=== PATIENT | male | born 1945 | race Caucasian/White ===

== ENCOUNTER 2020-05-04 16:50 | Outpatient (CLI) | payer MEDICARE, SELFPAY ==
--- NOTE | 2020-05-04 | USCV_ITS ---
Brett Gallego Age: 74 Gender: M : 1945 Exam Date: 05/04/2020 17:10 Ordering Phys: Shelli Stevens APN- NIRANJAN MEDICAL DELIVERY DRIVER Technologist: Tasha Whitaker Exam Location: [facility] [place] Indication: PAIN AND SWELLING RT LEG HISTORY: Pain and swelling Rt leg PROCEDURES: Venous duplex imaging was performed in only the right lower extremity. The following venous structures were evaluated: common femoral vein, profunda vein, proximal portion of the greater saphenous vein, superficial femoral vein, and the popliteal vein. In addition, the posterior tibial and peroneal trunk were evaluated. Serial compression, augmentation maneuvers, and spectral Doppler flow evaluation were performed. FINDINGS: DVT is noted from the Rt FV thru Rt Pop thru Rt. Peroneal Thru Rt. ATV thru Rt PTV. The GSV appears neg. CONCLUSIONS DVT right Femoral vein thru popliteal. Thrombus right peroneal trunk extending into anterior and posterior tibial veins. Volunteer Manager d/w: SUSIE STEVENS AND THEN TOOK TO ER PER HER INSTRUCTIONS Bubba Stapleton MD (Electronically Signed) Final Date: 04 May 2020 17:34 S
== END 2020-05-04 16:51 | disposition home or self-care (01) ==
PROVIDERS: Visit Provider Nurse Practitioner Family
DX: M79.605 Pain in left leg (principal); R60.0 Localized edema; M79.89 Other specified soft tissue disorders
CPT/HCPCS: 93971

== ENCOUNTER 2020-05-04 17:24 | Emergency (ER) | payer MEDICARE, SELFPAY ==
[2020-05-04 17:33] VITALS: BP 151/81; PULSE 63; RESP 18; TEMP 36.8; O2SAT 97; BMI 23.5
[2020-05-04 17:40] VITALS: PULSE 74
--- NOTE | 2020-05-04 18:41 | ED_ITS ---
HPI - Extremity Problem General: Chief complaint: Extremity Problem,Nontraumatic Stated complaint: blood clot Time Seen by Provider: 05/04/20 18:27 Source: patient Mode of arrival: ambulatory Limitations: no limitations History of Present Illness: HPI Narrative: 74 yo male that states he has right leg pain over the last week. pt states his pain is a 3/10. he had a us today and it showed a dvt so she sent her here. denies chest pain and denies sob MD Complaint: extremity pain Onset (ago): day(s) Pain Consistency: constant Location: right Severity scale (1-10): 6 Quality: stabbing Associated symptoms: Deny chest pain, fever(s) or rash Review of Systems Const: Denies: fever(s), chills, body aches or change in appetite Eyes: Denies: blurry vision or eye discomfort ENMT: Denies: throat pain or dental pain Card: Denies: chest pain Resp: Denies: dyspnea GI: Denies: abdominal pain, nausea, vomiting or diarrhea : Denies: dysuria Musc: Denies: neck pain or back pain Skin/Breast: Denies: rash Neuro: Denies: headache(s) Psych: Denies: depression Narciso/Lymph: Denies: easy bruising All/Imm: Denies: urticaria Physical Exam Const: COMMON NORMALS: no acute distress, patient oriented x3 and healthy appearing HENMT: COMMON NORMALS: normocephalic and atraumatic HEAD & SCALP: normocephalic and atraumatic Eye: COMMON NORMALS: Equal, round and reactive pupils present and EOMs intact bilaterally PUPIL: Yes Equal, round and reactive pupils present Neck/C-Spine: COMMON NORMALS: full ROM and supple Chest: COMMONS NORMALS: normal inspection of the chest and normal palpation of entire chest wall Resp: COMMON NORMALS: normal respiratory effort, No retractions, No use of accessory muscles and clear to auscultation bilaterally AUSCULTATION: clear to auscultation bilaterally Cardio: COMMON NORMALS: regular rate, regular rhythm and No murmurs present (Cardio) RATE: regular rate RHYTHM: regular rhythm GI: COMMON NORMALS: Normal to inspection, nondistended, normoactive bowel sounds present, Soft to palpation, non-tender and no masses PALPATION: Yes Soft to palpation Extremity: COMMON NORMALS: full ROM NARRATIVE EXTREMITY EXAM: Tenderness over right calf distal pulses intact Neuro: COMMON NORMALS: patient oriented x3, moves all extremities and no focal motor deficits Psych: COMMON NORMALS: mental status grossly normal, Normal thought process present and cooperative THOUGHT PROCESS: Normal thought process present Skin: COMMON NORMALS: no rashes or lesions noted and no wounds GENERAL SKIN EXAM: no rashes or lesions noted Course Vital Signs: Vital signs: Vital Signs Temperature 98.3 F 05/04/20 17:33 Pulse Rate 63 05/04/20 17:33 Respiratory Rate 18 05/04/20 17:33 Blood Pressure 151/81 05/04/20 17:33 Pulse Oximetry 97 05/04/20 17:33 MDM - Extremity (Nontraumatic) MDM Narrative: Medical decision making narrative: Patient presents for DVT to right leg. Patient's exam here is benign and he has no sign of arterial dysfunction. Patient has no chest pain or shortness of breath no signs of pulmonary was not. Will start patient on Eliquis. Patient is stable for discharge Discharge Plan Discharge Patient Disposition: Home Clinical Impression: Deep vein thrombosis of lower extremity Qualifiers: Affected thrombotic vein of extremity: unspecified vein of extremity Chronicity: acute Laterality: right Qualified Code(s): I82.401 - Acute embolism and thrombosis of unspecified deep veins of right lower extremity Condition: Stable Prescriptions: New Eliquis 5 mg tablet 10 mg PO BID 7 Days Qty: 28 RF: 0 Eliquis 5 mg tablet 5 mg PO BID Qty: 30 RF: 0 Discharge Orders: Discharge Order (Routine); Ordered 05/04/20 Ordered By: Reyes Harrison Referrals: Rica Stevens FNP [Referring] - 1-3 days Discharge Diet: Advance as tolerated Discharge Activity: Resume usual activity Patient Instructions: Deep Venous Thrombosis (ED) Coding Level of Care Code ED Research And Development Researcher for [facility] [place]
[2020-05-04] MEDS: enoxaparin 80 mg/0.8 mL Syringe 70 MG SUBCUT (18:52)
[2020-05-04 18:59] VITALS: BP 132/74; PULSE 74; RESP 18; O2SAT 98
== END 2020-05-04 19:01 | disposition home or self-care (01) ==
PROVIDERS: Emergency Provider Emergency Medicine
DX: I82.401 Acute embolism and thrombosis of unspecified deep veins of right lower extremity (principal)
CPT/HCPCS: 12345; 96372; 99281; 99283; J1650

== ENCOUNTER 2020-07-27 13:20 | Outpatient (CLI) | payer MEDICARE, SELFPAY ==
--- NOTE | 2020-07-27 13:39 | USCV_ITS ---
Sullivan, Thomas Age: 75 Gender: M : 1945 Exam Date: 07/27/2020 14:45 Ordering Phys: Shelli Stevens APN- NIRANJAN INDUSTRIAL MAINTENANCE TECH Technologist: Reilly Garcia [place] [facility] [place]: RIGHT LEG PAIN/ EDEMA PROCEDURES: Venous duplex imaging was performed in only the right lower extremity. The following venous structures were evaluated: common femoral vein, profunda vein, proximal portion of the greater saphenous vein, superficial femoral vein, and the popliteal vein. In addition, the posterior tibial and peroneal trunk were evaluated. Serial compression, augmentation maneuvers, and spectral Doppler flow evaluation were performed. FINDINGS: DVT noted in the right distal femoral, popliteal, and peroneal veins. All other vessels examined appear free of thrmobus at this time. CONCLUSIONS DVT RIGHT distal femoral, popliteal, and peroneal veins. Remaining vessels RLE are patent Bubba Stapleton MD (Electronically Signed) Final Date: 27 July 2020 17:05 S
== END 2020-07-27 13:21 | disposition home or self-care (01) ==
LOC: US 13:24
PROVIDERS: PCP Nurse Practitioner Family; Visit Provider Nurse Practitioner Family
DX: M79.604 Pain in right leg (principal); R60.0 Localized edema; I82.451 Acute embolism and thrombosis of right peroneal vein; I82.431 Acute embolism and thrombosis of right popliteal vein; I82.411 Acute embolism and thrombosis of right femoral vein
CPT/HCPCS: 93971

== ENCOUNTER → 2021-02-02 09:26 | Outpatient (BNVA) | payer MEDICARE, SELFPAY | PROVIDERS: PCP Nurse Practitioner Family; Visit Provider Specialist | DX: R25.1 Tremor, unspecified (principal); G30.9 Alzheimer's disease, unspecified; F02.80 Dementia in other diseases classified elsewhere, unspecified severity, without behavioral disturbance, psychotic disturbance, mood disturbance, and anxiety | CPT/HCPCS: 96116; 99205 ==

== ENCOUNTER → 2021-06-22 08:54 | Outpatient (BNVA) | payer MEDICARE, SELFPAY | PROVIDERS: PCP Nurse Practitioner Family; Visit Provider Specialist | DX: G30.9 Alzheimer's disease, unspecified (principal); F02.80 Dementia in other diseases classified elsewhere, unspecified severity, without behavioral disturbance, psychotic disturbance, mood disturbance, and anxiety; R25.1 Tremor, unspecified | CPT/HCPCS: 96116; 99214 ==

== ENCOUNTER → 2021-12-21 09:20 | Outpatient (BNVA) | payer MEDICARE, SELFPAY | PROVIDERS: PCP Nurse Practitioner Family; Visit Provider Specialist | DX: G30.9 Alzheimer's disease, unspecified (principal); F02.80 Dementia in other diseases classified elsewhere, unspecified severity, without behavioral disturbance, psychotic disturbance, mood disturbance, and anxiety; R25.1 Tremor, unspecified | CPT/HCPCS: 99213; 99214 ==

== ENCOUNTER → 2022-12-29 14:14 | Outpatient (BNVA) | payer MEDICARE, SELFPAY | PROVIDERS: PCP Nurse Practitioner Family; Visit Provider Specialist | DX: G30.9 Alzheimer's disease, unspecified (principal); F02.80 Dementia in other diseases classified elsewhere, unspecified severity, without behavioral disturbance, psychotic disturbance, mood disturbance, and anxiety | CPT/HCPCS: 96116; 99213 ==

== ENCOUNTER 2023-11-01 18:27 | Emergency (ER) | payer MEDICARE, SELFPAY ==
[2023-11-01] VITALS (8 sets, daily range): BP systolic 106–148; BP diastolic 62–85; PULSE 66–77; RESP 14–18; TEMP 38.2–39.1; O2SAT 93–95
--- NOTE | 2023-11-01 18:39 | CTR_ITS ---
PROCEDURE INFORMATION: Exam: CTA Head With Contrast, Arteriography Exam date and time: 11/01/2023 6:42 PM Age: 78 years old Clinical indication: Stroke-like symptoms; Speech disturbance; Additional info: Garbled speech left sided weakness TECHNIQUE: Imaging protocol: Computed tomographic angiography of the head with contrast. Exam focused on the arteries. 3D rendering (Not supervised by radiologist): MIP and/or 3D reconstructed images were created by the technologist. Radiation optimization: All CT scans at this facility use at least one of these dose optimization techniques: automated exposure control; mA and/or kV adjustment per patient size (includes targeted exams where dose is matched to clinical indication); or iterative reconstruction. Contrast material: OMNI 350; Contrast volume: 100 ml; Contrast route: INTRAVENOUS (IV); COMPARISON: CT head thrombolytic [id number] 11/01/2023 6:34 PM RADIATION DOSE METRICS: Total DLP (mGy-cm): 468 FINDINGS: ANTERIOR CIRCULATION: Right internal carotid artery: Intracranial segment is patent with no significant stenosis. No aneurysm. Right middle cerebral artery: No occlusion or significant stenosis. No aneurysm. Right anterior cerebral artery: No occlusion or significant stenosis. No aneurysm. Left internal carotid artery: Atherosclerosis left internal carotid with mild stenosis. Left middle cerebral artery: No occlusion or significant stenosis. No aneurysm. Left anterior cerebral artery: No occlusion or significant stenosis. No aneurysm. POSTERIOR CIRCULATION: Right vertebral artery: No occlusion or significant stenosis. No aneurysm. Left vertebral artery: Distal left V4 segment of the vertebral artery is opacified which is likely retrograde. 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 Basilar artery: No occlusion or significant stenosis. No aneurysm. Right posterior cerebral artery: No occlusion or significant stenosis. No aneurysm. Left posterior cerebral artery: No occlusion or significant stenosis. No aneurysm. Brain: See Left vertebral artery finding. Cerebral ventricles: No ventriculomegaly. Bones/joints: Unremarkable. No acute fracture. Soft tissues: Unremarkable. Other findings: The left PICA is patent. PROCEDURE INFORMATION: Exam: CTA Neck With Contrast Exam date and time: 11/01/2023 6:42 PM Age: 78 years old Clinical indication: Stroke-like symptoms; Speech disturbance; Additional info: Garbled speech left sided weakness TECHNIQUE: Imaging protocol: Computed tomographic angiography of the neck with contrast. Exam focused on the cervical segments of the vasculature. 3D rendering (Not supervised by radiologist): MIP and/or 3D reconstructed images were created by the technologist. Radiation optimization: All CT scans at this facility use at least one of these dose optimization techniques: automated exposure control; mA and/or kV adjustment per patient size (includes targeted exams where dose is matched to clinical indication); or iterative reconstruction. Contrast material: OMNI 350; Contrast volume: 100 ml; Contrast route: INTRAVENOUS (IV); COMPARISON: CT head thrombolytic [id number] 11/01/2023 6:34 PM RADIATION DOSE METRICS: Total DLP (mGy-cm): 468 FINDINGS: Right common carotid artery: No stenosis. No dissection or occlusion. Right internal carotid artery: No stenosis of the extracranial segment. No dissection or occlusion. Right external carotid artery: No occlusion or stenosis of the origin. Left common carotid artery: No stenosis. No dissection or occlusion. Left internal carotid artery: Atherosclerotic changes proximal left internal carotid artery with less than 30% stenosis. Left external carotid artery: No occlusion or stenosis of the origin. Right vertebral artery: No stenosis. No dissection or occlusion. Left vertebral artery: The non dominant left vertebral artery is occluded at its origin. There is some faint opacification of the V2 and V3 segment which may be retrograde. Soft tissues: Normal. No significant soft tissue swelling. Bones/joints: No acute fracture. Partially seen mild chronic appearing T6 superior endplate height loss. Other findings: The distal cervical internal carotid arteries are tortuous bilaterally. 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 The intracranial vasculature is otherwise patent. IMPRESSION: The left vertebral artery is occluded at its origin. There is some intermittent opacification in the V2 and V3 segment which may be retrograde. These findings may be related to an age indeterminate potentially acute dissection. REFERENCES: NASCET CRITERIA. The degree of stenosis in the cervical segment of the internal carotid artery is based on NASCET criteria. Normal is no stenosis. Mild is less than 50% stenosis. Moderate is 50-69% stenosis. Severe is 70% to 99% stenosis. Total occlusion is no detectable patent lumen.
--- NOTE | 2023-11-01 18:39 | CTR_ITS ---
PROCEDURE INFORMATION: Exam: CT Head Without Contrast Exam date and time: 11/01/2023 6:34 PM Age: 78 years old Clinical indication: Stroke-like symptoms; Speech disturbance; Additional info: Garbled speech left sided weakness TECHNIQUE: Imaging protocol: Computed tomography of the head without contrast. Radiation optimization: All CT scans at this facility use at least one of these dose optimization techniques: automated exposure control; mA and/or kV adjustment per patient size (includes targeted exams where dose is matched to clinical indication); or iterative reconstruction. Other technique: STROKE PROTOCOL was implemented. COMPARISON: No relevant prior studies available. 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 No acute infarct. No hemorrhage. Involutional changes of the brain, commensurate with age. No mass effect. Cerebral ventricles: No ventriculomegaly. Paranasal sinuses: Scattered paranasal sinus mucosal thickening, without air-fluid level present. Mastoid air cells: Visualized mastoid air cells are well aerated. Bones/joints: Unremarkable. No acute fracture. Soft tissues: Unremarkable. CT/CT head thrombolytic [id number] IMPRESSION: No acute intracranial abnormality. ASSESSMENT: ASPECTS ([place] Stroke Program Early CT Score) is 10.
--- NOTE | 2023-11-01 18:40 | XRR_ITS ---
PROCEDURE INFORMATION: Exam: XR Chest Exam date and time: 11/01/2023 7:31 PM Age: 78 years old Clinical indication: Other: Possible stroke; Additional info: Garbled speech TECHNIQUE: Imaging protocol: Radiologic exam of the chest. Views: 1 view. COMPARISON: CT angio headneck* [id number] 11/01/2023 6:42 PM FINDINGS: Lungs: Unremarkable. No consolidation. Pleural spaces: Unremarkable. No pleural effusion. No pneumothorax. Heart/Mediastinum: The heart size is mildly enlarged with tortuous aorta. Bones/joints: Unremarkable. XR/XR chest 1V portable [id number] IMPRESSION: No acute findings.
--- NOTE | 2023-11-01 18:44 | ED_ITS ---
HPI - Neuro Symptoms/Deficit 2 General: Chief Complaint: Neuro Symptoms/Deficit Stated Complaint: possible stroke Time Seen by Provider: 11/01/23 18:39 History of Present Illness: Patient brought to the ER for possible strokelike symptoms. Patient woke up from his nap about 130 2:00 and family noticed that he was slurring his speech and having left-sided weakness. Patient had a similar episode yesterday that had completely resolved by his episode today. Patient is on Eliquis for history of DVT. Patient does have dementia. Patient does not have any history of strokes in the past. Patient does have Alzheimer's. And tremor. Review of Systems 2 General: Reports: 10 or more systems reviewed and unremarkable except in HPI and below PFSH ED 2 PFSH: Social History Smoking and tobacco/nicotine status: never used tobacco/nicotine Alcohol intake: never Substance/Drug Use: never Physical Exam 2 Const: COMMON NORMALS: no acute distress, average body habitus, no limitations, healthy appearing, alert and well nourished HENMT: COMMON NORMALS: normocephalic, atraumatic, hearing grossly normal bilaterally, external ears normal, Normal external nose present, moist oral mucous membranes and oropharynx normal HEAD & SCALP: normocephalic and atraumatic NOSE: Normal external nose present EXTERNAL EAR: Yes external ears normal Eye: COMMON NORMALS: Equal, round and reactive pupils present, EOMs intact bilaterally, conjunctivae normal and no scleral icterus CONJUNCTIVA: Yes conjunctivae normal PUPIL: Yes Equal, round and reactive pupils present Neck/C-Spine: COMMON NORMALS: full ROM, no lymphadenopathy, supple, no meningeal signs, no JVD and Thyroid normal THYROID: Thyroid normal Chest: COMMONS NORMALS: normal inspection of the chest and normal palpation of entire chest wall Resp: COMMON NORMALS: normal respiratory effort, No retractions, No use of accessory muscles and clear to auscultation bilaterally AUSCULTATION: clear to auscultation bilaterally Cardio: COMMON NORMALS: no JVD, regular rate, regular rhythm, S1 normal heart sound present, S2 normal heart sound present, No gallops present (Cardio), No clicks present (Cardio), No murmurs present (Cardio) and No rub (Cardio) R ATE: regular rate RHYTHM: regular rhythm HEART SOUNDS: S1 normal heart sound present and S2 normal heart sound present GI: COMMON NORMALS: Normal to inspection, nondistended, normoactive bowel sounds present, Soft to palpation, non-tender, No hepatosplenomegaly present and no masses PALPATION: Yes Soft to palpation and Yes No hepatosplenomegaly present Neuro: SENSORIUM/ORIENTATION: Yes alert MENINGEAL SIGNS: Yes no meningeal signs OTHER: NIH 1 for speech Course 2 Vital Signs: Vital signs: Vital Signs Temperature 100.8 F H 11/01/23 20:32 Pulse Rate 71 11/01/23 21:41 Respiratory Rate 14 11/01/23 19:01 Blood Pressure 125/70 11/01/23 21:41 Pulse Oximetry 95 11/01/23 21:41 Oxygen Delivery Me thod Room Air 11/01/23 21:15 MDM - Neuro Symptoms/Deficit Medical Decision Making Dr. Rodriguez came to the ER to evaluate patient. He scored him an NIH of 1. He said family stated patient's 90% back to normal during his exam. And already being on Eliquis he would consider adding a 81 mg aspirin, Lipitor 40 mg and have him follow-up on an outpatient 1 to 2 weeks. Reassessing the patient with the family patient and family agree the patient is back to normal. Patient is COVID-positive. Differential Diagnosis Likely transient cerebral ischemia; Unlikely carpal tunnel syndrome, convulsions, delirium, subarachnoid hemorrhage, peripheral neuropathy, cerebrovascular accident or multiple sclerosis Medical Records I reviewed the patient's medical records. Lab Data I reviewed the patient's lab results. 11/01/23 18:59 11/01/23 18:[address] 11/01/23 18:39 IMPRESSION: No acute intracranial abnormality. ASSESSMENT: ASPECTS ([place] Stroke Program Early CT Score) is 10. 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 The intracranial vasculature is otherwise patent. IMPRESSION: The left vertebral artery is occluded at its origin. There is some intermittent opacification in the V2 and V3 segment which may be retrograde. These findings may be related to an age indeterminate potentially acute dissection. REFERENCES: NASCET CRITERIA. The degree of stenosis in the cervical segment of the internal carotid artery is based on NASCET criteria. Normal is no stenosis. Mild is less than 50% stenosis. Moderate is 50-69% stenosis. Severe is 70% to 99% stenosis. Total occlusion is no detectable patent lumen. ADDENDUM: 11/01/231925 THIS REPORT CONTAINS FINDINGS THAT MAY BE CRITICAL TO PATIENT CARE. The findings were verbally communicated via telephone conference with Milton Gill at 7:20 PM SUPERVISOR [employer] on 11/01/2023. The findings were acknowledged and understood. The M1 segment of the left MCA is also noted to have mild stenosis distally. No occlusion. Chest X-Ray 11/01/23 18:40 IMPRESSION: No acute findings. Laboratory Results WBC 5.40 10^3/uL (3.29-11.43) 11/01/23 18:59 RBC 4.16 10^6/uL (3.85-5.65) 11/01/23 18:59 Hgb 13.00 g/dL (11.27-16.99) 11/01/23 18:59 Hct 38.0 % (37-53) 11/01/23 18:59 MCV 91.3 fl (82-101) 11/01/23 18:59 MCH 31.3 pg (27-33) 11/01/23 18:59 MCHC 34.2 g/dL (30-55) 11/01/23 18:59 RDW 11.5 % (12.1-15.1) L 11/01/23 18:59 Plt Count 133 10^3/cmm (157-399) L 11/01/23 18:59 MPV 9.4 fL (7.4-10.4) 11/01/23 18:59 Neut % (Auto) 74.0 % 11/01/23 18:59 Lymph % (Auto) 10.0 % 11/01/23 18:59 [place] % (Auto) 15.6 % 11/01/23 18:59 Eos % (Auto) 0.0 % 11/01/23 18:59 Baso % (Auto) 0.2 % 11/01/23 18:59 Neut # (Auto) 4.00 10^3/uL (1.8-7.7) 11/01/23 18:59 Lymph # (Auto) 0.5 10^3/uL (0.8-4.8) L 11/01/23 18:59 [place] # (Auto) 0.8 10^3/uL (0.2-0.9) 11/01/23 18:59 Eos # (Auto) 0.0 10^3/uL (0.0-0.8) 11/01/23 18:59 Baso # (Auto) 0.0 10^3/uL (0.0-0.1) 11/01/23 18:59 Nucleated RBC % (auto) 0 % 11/01/23 18:59 Nucleated RBCs # 0.0 /100WBC 11/01/23 18:59 Sodium 131 mmol/L (136-145) L 11/01/23 18:59 Potassium 4.5 mmol/L (3.5-5.1) 11/01/23 18:59 Chloride 97 mmol/L (98-107) L 11/01/23 18:59 Carbon Dioxide 27 mmol/L (22-29) 11/01/23 18:59 Anion Gap 11.5 (5-19) 11/01/23 18:59 BUN 15 mg/dL (8-23) 11/01/23 18:59 Creatinine 0.9 mg/dL (0.7-1.2) 11/01/23 18:59 GFR Calculation Not Reportable 11/01/23 18:59 Glucose 103 mg/dL (65-115) 11/01/23 18:59 POC Glucose 95 mg/dL (70-110) 11/01/23 18:45 Calculated Osmolality 273 mOsm/kg (285-295) L 11/01/23 18:59 Lactic Acid 1.1 mmol/L (0.5-2.2) 11/01/23 18:59 Calcium 8.1 mg/dL (8.5-10.5) L 11/01/23 18:59 Magnesium 2.0 mg/dL (1.7-2.3) 11/01/23 18:59 Total Bilirubin 0.4 mg/dL (0.15-1.2) 11/01/23 18:59 AST 19 U/L (0-40) 11/01/23 18:59 ALT 15 U/L (0-41) 11/01/23 18:59 Alkaline Phosphatase 68 U/L (40-130) 11/01/23 18:59 Troponin T Baseline 9 ng/L (0-15) 11/01/23 18:59 Troponin T 120 Minute 11.86 ng/L (0-15) 11/01/23 20:40 Delta Troponin T 2.86 ABS# (0-10) 11/01/23 20:40 C-Reactive Protein 37.4 mg/L (0.0-4.9) H 11/01/23 18:59 Total Protein 5.8 g/dL (6.6-8.7) L 11/01/23 18:59 Albumin 3.6 g/dL (3.5-5.2) 11/01/23 18:59 Globulin 2.2 g/dL (1.3-4.6) 11/01/23 18:59 Procalcitonin 0.05 ng/mL (0-0.5) 11/01/23 18:59 TSH 1.93 uIU/mL (0.27-4.20) 11/01/23 18:59 Urine Color Yellow (Yellow) 11/01/23 19:18 Urine Appearance Clear (CLEAR) 11/01/23 19:18 Urine pH 5 (5-7) 11/01/23 19:18 Ur Specific [place] 1.015 (1.005-1.030) 11/01/23 19:18 Urine Protein Neg (Negative) 11/01/23 19:18 Urine Glucose (UA) Norm (Normal) 11/01/23 19:18 Urine Ketones Negative (Negative) 11/01/23 19:18 Urine Blood Neg (Negative) 11/01/23 19:18 Urine Nitrate Negative (Negative) 11/01/23 19:18 Urine Bilirubin Neg (Negative) 11/01/23 19:18 Urine Urobilinogen Norm mg/dL (Negative) 11/01/23 19:18 Ur Leukocyte Esterase Negative (Negative) 11/01/23 19:18 Influenza Type A Ag negative (Negative) 11/01/23 19:55 Influenza Type B Ag negative (Negative) 11/01/23 19:55 SARS-CoV-2 Ag (Rapid) positive (Negative) H 11/01/23 19:55 All radiology interpretation(s) finalized by discharge Discharge Plan Discharge Patient Disposition: Home Clinical Impression: Brain TIA, COVID Alzheimer's dementia Qualifiers: Alzheimer's disease onset: unspecified onset Dementia severity: unspecified severity Dementia behavioral or psychological symptom: unspecified whether behavioral, psychotic, or mood disturbance or anxiety Qualified Code(s): G30.9 - Alzheimer's disease, unspecified Condition: Stable Prescriptions: New Eliquis 5 mg tablet 5 mg PO BID Qty: 60 0RF Aspirin Childrens 81 mg tablet,chewable 81 mg PO DAILY Qty: 30 0RF Lipitor 40 mg tablet 40 mg PO DAILY Qty: 30 0RF No Action magnesium 250 mg tablet 250 mg PO DAILY ascorbic acid (vitamin C) [Vitamin C] 1,000 mg tablet 500 mg PO DAILY Eliquis 5 mg tablet 5 mg PO DAILY Rx Instructions: start this after first week of loading dose memantine [Namenda] 10 mg tablet 10 mg PO BID Qty: 180 3RF donepezil 10 mg tablet 10 mg PO DAILY Qty: 90 3RF Discharge Orders: Discharge ED (Routine); Ordered 11/01/23 Ordered By: Milton Acosta Referrals: Shelli Stevens APN [Primary Care Provider] - 1 week Patient Instructions: COVID-19 (Coronavirus Disease 2019) (ED), TIA Activity Restrictions/Additional Instructions: Please take all medicines as prescribed. If patient's symptoms return or worsen please return to the ER for further evaluation and treatment otherwise follow-up in Dr. Ryder's office or with Dr. Rodriguez if Dr. Ryder is unavailable within the next 1 to 2 weeks. Coding Level of Care Code ED Relations Manager for [place]
[2023-11-01 18:49] LABS: Glucose Point of Care 95 mg/dL (70-110)
--- NOTE | 2023-11-01 18:55 | ECG_ITS ---
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 Measurements Intervals [place] Rate: 76 P: 42 UT: 150 QRS: 54 QRSD: 92 T: 10 QT: 357 QTc: 402 Interpretive Statements SINUS RHYTHM No previous ECG available for comparison Electronically Signed On 11-02-2023 11:39:21 CANTEEN MANAGER by Carlito Zhao M.D. [email or web address]
[2023-11-01 19:07] LABS: Basophils % 0.2 %; Lymphocytes # 0.5 10^3/uL (0.8-4.8); Mean Corpuscular HGB Conc 34.2 g/dL (30-55); Mean Corpuscular Hemoglobin 31.3 pg (27-33); Mean Corpuscular Volume 91.3 fl (82-101); Mean Platelet Volume 9.4 fL (7.4-10.4); Monocytes # 0.8 10^3/uL (0.2-0.9); Monocytes % 15.6 %; Nucleated Red Blood Cells % 0 %; Platelet Count 133 10^3/cmm (157-399); Red Blood Count 4.16 10^6/uL (3.85-5.65); Red Cell Distribution Width 11.5 % (12.1-15.1)
--- NOTE | 2023-11-01 19:14 | P.CONIM_ITS ---
Providers/Reason For Consult 2 Consulting Physician/Specialty*: Cristopher Rodriguez MD neurology and epilepsy Reason for Consult*: Code stroke emergency department room #16 Primary Care Provider: Shelli Stevens APN History of Present Illness History of Present Illness Brett Sullivan is a 78 year old male with a history of right deep venous thrombosis 3 to 4 years ago treated with Eliquis and Alzheimer's disease. Patient followed by Dr. Ryder. According to the family who was present in the emergency [facility], the patient was last seen by Dr. Ryder in 2022. 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 According to the family the patient was at home and on 10/31/2023 the patient experienced slurred speech that lasted for an extended period of time and then resolved. On the morning of 11/01/2023 the patient was reported to be in his usual state of health. Patient took a nap on the afternoon of 11/01/2023 and woke up around 2 PM with slurred speech that continued and the patient was reported by the family to experience weakness in his legs with inability to stand. Therefore the patient was brought to [facility] emergency room. According to the patient's , the patient also complained of lumbar pain on 10/31/2023 and today he was experiencing nasal drip and she administered to Benadryl capsules around 2 PM today. In the emergency room, patient underwent stat noncontrast head CT which was reported to be negative. CT angiogram of the head and neck was performed but results of the study pending at the time of this evaluation. Clinically the patient is alert and in no apparent distress. According to the family the patient's slurred speech has improved tremendously and the patient is approximately 90% better. NIH score =1 secondary to mild dysarthria (slurred speech). The patient denied back pain at this time chest pain, shortness of breath, or headaches. Since the patient's NIH score =1 and the patient's last known well could not be determined, and the patient is on Eliquis, the patient was not a candidate for intravenous thrombolytics and no intravenous thrombolytics were administered. 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 The intracranial vasculature is otherwise patent. Drug allergies: None Current outpatient medications: Namenda 10 mg p.o. daily Aricept 10 mg p.o. daily Eliquis 5 mg p.o. daily Magnesium supplement [id number] Vitamin D3 supplement [id number] Zinc supplement [id number] Benadryl 25 mg as needed Past medical history: Senile dementia of the Alzheimer's type Right lower extremity DVT treated with Eliquis Habits: None Family history: Remarkable for a father with senile dementia of the Alzheimer's type and stroke Review of Systems 2 General: Reports: 10 or more systems reviewed and unremarkable except in HPI and below Medications/Allergies Home Medications Medication Instructions Recorded Confirmed Last Taken Type ascorbic acid (vitamin C) 1,000 mg 500 mg PO DAILY 02/02/21 12/29/22 Unknown History tablet (Vitamin C) magnesium 250 mg tablet 250 mg PO DAILY 02/02/21 12/29/22 Unknown History apixaban 5 mg tablet (Eliquis) 5 mg PO DAILY 12/21/21 12/29/22 Unknown History donepezil 10 mg tablet 10 mg PO DAILY #90 tabs 12/29/22 12/29/22 Unknown Rx memantine 10 mg tablet (Namenda) 10 mg PO BID #180 tabs 12/29/22 12/29/22 Unknown Rx Allergies Allergy/AdvReac Type Severity Reaction Status Date / Time No Known Allergies Allergy Verified 12/29/22 14:33 PFSH Acute 2 PFSH: Social History Smoking and tobacco/nicotine status: never used tobacco/nicotine Alcohol intake: never Substance/Drug Use: never Vitals/I&O/Wt Last Vital Signs Pulse 77 11/01/23 19:01 Resp 14 11/01/23 19:01 BP 148/85 11/01/23 19:01 Pulse Ox 95 11/01/23 19:01 O2 Del Method Room Air 11/01/23 19:01 Weight last 48 hrs Weight 151 lb Physical Exam 2 Narrative: NIH score = 1 Secondary to mild dysarthria. The patient is alert and oriented to person place and situation. Patient was able to follow commands and answer questions. Patient could tell me his complete name and that he was at the hospital. He denied pain. Cranial nerves II through XII intact. Extraocular movements intact. Visual trujillo appeared full via confrontation. There were no nystagmus. Pupils 4 mm bilaterally round reactive to light and accommodation. Motor testing 5/5 bilaterally. There was no drift. There was no obvious signs of ataxia. Sensory examination was intact to touch. There was no extinction on double sensory stimulation. Plantar responses flexor bilaterally. Throat clear. Lungs clear. Heart regular rhythm and rate. Extremities were negative for cyanosis. Data 11/01/23 18:59 11/01/23 18:59 A&P Assessment and plan (1) TIA (transient ischemic attack): Impression: 1. Transient ischemic attack manifested as slurred speech and weakness with inability to stand. Weakness resolved and speech markedly improved. 2. 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 The intracranial vasculature is otherwise patent. 3. Senile dementia of the Alzheimer's type 4. History of right lower extremity deep venous thrombosis 3 to 4 years ago treated with Eliquis Plan: 1. Add aspirin 81 mg p.o. every morning with food 2. Add cholesterol-lowering agent per NIH stroke protocol 3. Continue Eliquis 5 mg p.o. every morning for history of right lower extremity deep venous thrombosis 4. Schedule follow-up in the [facility] neurology clinic in 2 weeks. Note: The patient is followed by Dr. Dr. Ryder. (2) Alzheimer disease: Consult Attestations 2 Medical Necessity Statement: Patient evaluated by neurology for acute care/code stroke emergency department room #16 Coding Level of Care Code 17413 Diagnoses TIA (transient ischemic attack) G45.9 Alzheimer disease G30.9; F02.80
[2023-11-01 19:22] LABS: Troponin(5th) Baseline 9 ng/L (0-15)
[2023-11-01 19:23] LABS: Add Urine Microscopic? NO; Charge for UA Resulting for Rev
[2023-11-01 19:25] LABS: Specific Gravity, Urine 1.015 (1.005-1.030); Urine Appearance Clear (CLEAR); Urine Color Yellow (Yellow); pH Urine 5 (5-7)
[2023-11-01 19:26] LABS: Bilirubin Urine Neg (Negative); Blood Urine Neg (Negative); Glucose Urine UA Norm (Normal); Ketones Urine Negative (Negative); Leukocyte Esterase Urine Negative (Negative); Nitrate Urine Negative (Negative); Protein Urine Neg (Negative); Urobilinogen Urine Norm (Negative)
[2023-11-01 19:40] LABS: Alanine Aminotransferase 15 U/L (0-41); Albumin Level 3.6 g/dL (3.5-5.2); Alkaline Phosphatase 68 U/L (40-130); Aspartate Amino Transferase 19 U/L (0-40); Blood Urea Nitrogen 15 mg/dL (8-23); C Reactive Protein 37.4 mg/L (0.0-4.9); Calcium 8.1 mg/dL (8.5-10.5); Carbon Dioxide 27 mmol/L (22-29); Chloride 97 mmol/L (98-107); Globulin 2.2 g/dL (1.3-4.6); Glucose 103 mg/dL (65-115); Osmolality Calculated 273 mOsm/kg (285-295); Sodium 131 mmol/L (136-145); Thyroid Stimulating Hormone 1.93 uIU/mL (0.27-4.20); Total Bilirubin 0.4 mg/dL (0.15-1.2); Total Protein 5.8 g/dL (6.6-8.7)
[2023-11-01 19:46] LABS: Anion Gap 11.5 (5-19); Potassium 4.5 mmol/L (3.5-5.1)
[2023-11-01] MEDS: acetaminophen 500 mg Tablet 1000 MG PO (19:52)
[2023-11-01 20:24] LABS: Influenza A by IFA negative (Negative); Influenza B by IFA negative (Negative)
[2023-11-01 20:26] LABS: SARS Covid-2 Antigen positive (Negative)
[2023-11-01 20:28] LABS: Lactic Sepsis W/Reflex 1.1 mmol/L (0.5-2.2)
[2023-11-01 20:31] LABS: Procalcitonin 0.05 ng/mL (0-0.5)
--- NOTE | 2023-11-01 20:40 | ECG_ITS ---
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 Measurements Intervals Elizabeth Rate: 68 P: 30 IL: 146 QRS: -4 QRSD: 94 T: 2 QT: 368 QTc: 393 Interpretive Statements SINUS RHYTHM Compared to ECG 11/01/2023 18:55:29 No significant changes Electronically Signed On 11-02-2023 11:40:14 [employer] by Carlito Zhao M.D. [id number]
[2023-11-01 21:06] LABS: Troponin 5 2HR 11.86 ng/L (0-15); Troponin 5 2HR Delta 2.86 ABS# (0-10)
== END 2023-11-01 21:41 | disposition home or self-care (01) ==
PROVIDERS: Emergency Provider Emergency Medicine; PCP Nurse Practitioner Family
DX: G45.9 Transient cerebral ischemic attack, unspecified (principal); U07.1 COVID-19; G30.9 Alzheimer's disease, unspecified; F02.80 Dementia in other diseases classified elsewhere, unspecified severity, without behavioral disturbance, psychotic disturbance, mood disturbance, and anxiety; Z79.01 Long term (current) use of anticoagulants
CPT/HCPCS: 36415; 36416; 70450; 70496; 70498; 71045; 80053; 81003; 82962; 83605; 83735; 84145; 84443; 84484; 85025; 86140; 87040; 87426; 87804; 93005; 99285

== ENCOUNTER → 2023-11-23 10:16 | Outpatient (BNVA) | payer MEDICARE, SELFPAY | PROVIDERS: PCP Nurse Practitioner Family; Visit Provider Psychiatry & Neurology Neurology | DX: G45.9 Transient cerebral ischemic attack, unspecified (principal); R25.1 Tremor, unspecified; I77.74 Dissection of vertebral artery; G30.9 Alzheimer's disease, unspecified; F02.80 Dementia in other diseases classified elsewhere, unspecified severity, without behavioral disturbance, psychotic disturbance, mood disturbance, and anxiety | CPT/HCPCS: 99212 ==

== ENCOUNTER → 2024-01-31 12:39 | Outpatient (BNVA) | payer MEDICARE, SELFPAY | PROVIDERS: PCP Nurse Practitioner Family; Visit Provider Specialist | DX: G30.9 Alzheimer's disease, unspecified (principal); F02.80 Dementia in other diseases classified elsewhere, unspecified severity, without behavioral disturbance, psychotic disturbance, mood disturbance, and anxiety; R41.3 Other amnesia; G45.9 Transient cerebral ischemic attack, unspecified; I77.74 Dissection of vertebral artery | CPT/HCPCS: 96116; 99214 ==

== ENCOUNTER 2024-02-15 09:07 | Outpatient (CLI) | payer MEDICARE, SELFPAY ==
--- NOTE | 2024-02-15 09:30 | CTR_ITS ---
PROCEDURE INFORMATION: Exam: CTA Head With Contrast, Arteriography Exam date and time: 02/15/2024 9:46 AM Age: 78 years old Clinical indication: Condition or disease; Transient cerebral ischemic attacks (tia); Type not specified; Patient HX: Follow up to cta head/neck in oct; Additional info: G45.9 - transient cerebral ischemic attack, unspecified TECHNIQUE: Imaging protocol: Computed tomographic angiography of the head with contrast. Exam focused on the arteries. 3D rendering (Not supervised by radiologist): MIP and/or 3D reconstructed images were created by the technologist. Radiation optimization: All CT scans at this facility use at least one of these dose optimization techniques: automated exposure control; mA and/or kV adjustment per patient size (includes targeted exams where dose is matched to clinical indication); or iterative reconstruction. Contrast material: OMNI 350; Contrast volume: 100 ml; Contrast route: INTRAVENOUS (IV); COMPARISON: CT angio headneck* [id number] 11/01/2023 6:42 PM RADIATION DOSE METRICS: Total DLP (mGy-cm): 1152.47 FINDINGS: ANTERIOR CIRCULATION: Right internal carotid artery: There is calcification in right intracranial ICA with no stenosis, thrombosis, or occlusion. No aneurysm. Right middle cerebral artery: No occlusion or significant stenosis. No aneurysm. Right anterior cerebral artery: No occlusion or significant stenosis. No aneurysm. Left internal carotid artery: There is calcification of intracranial left internal carotid artery with mild stenosis. No thrombosis, occlusion, or evidence of aneurysm. Left middle cerebral artery: No occlusion or significant stenosis. No aneurysm. Left anterior cerebral artery: No occlusion or significant stenosis. No aneurysm. POSTERIOR CIRCULATION: Right vertebral artery: No occlusion or significant stenosis. No aneurysm. Right posterior inferior cerebellar artery is supplied by dominant anterior inferior cerebellar artery. Left vertebral artery: Nonvisualized proximal V4 segment. Distal V4 segment is reconstituted via retrograde flow from contralateral side and this reconstitutes widely patent posterior inferior cerebellar artery. No aneurysm. Basilar artery: No occlusion or significant stenosis. No aneurysm. There is a dominant anterior inferior cerebellar artery arising from proximal basilar artery which is supplying right PICA territory. There is a smaller duplicated right AICA more superiorly, with adjacent similar size left AICA. Bilateral superior cerebellar arteries are widely patent. Right posterior cerebral artery: No occlusion or significant stenosis. No aneurysm. Left posterior cerebral artery: No occlusion or significant stenosis. No aneurysm. Brain: No definite mass, mass effect, or midline shift. Cerebral ventricles: No ventriculomegaly. Paranasal sinuses: Bilateral maxillary sinus retention cysts or polyps. Fluid in right sphenoid sinus. Bones/joints: Unremarkable. No acute fracture. Soft tissues: Unremarkable. PROCEDURE INFORMATION: Exam: CTA Neck With Contrast Exam date and time: 02/15/2024 9:46 AM Age: 78 years old Clinical indication: Condition or disease; Transient cerebral ischemic attacks (tia); Type not specified; Patient HX: Follow up to cta head/neck in oct; Additional info: G45.9 - transient cerebral ischemic attack, unspecified TECHNIQUE: Imaging protocol: Computed tomographic angiography of the neck with contrast. Exam focused on the cervical segments of the vasculature. 3D rendering (Not supervised by radiologist): MIP and/or 3D reconstructed images were created by the technologist. Radiation optimization: All CT scans at this facility use at least one of these dose optimization techniques: automated exposure control; mA and/or kV adjustment per patient size (includes targeted exams where dose is matched to clinical indication); or iterative reconstruction. Contrast material: OMNI 350; Contrast volume: 100 ml; Contrast route: INTRAVENOUS (IV); COMPARISON: CT angio headneck* [id number] 11/01/2023 6:42 PM RADIATION DOSE METRICS: Total DLP (mGy-cm): 1152.47 FINDINGS: Right common carotid artery: No stenosis. No dissection or occlusion. Right internal carotid artery: Mild atherosclerotic change at bifurcation. No stenosis of the extracranial segment. No dissection or occlusion. Right external carotid artery: No occlusion or stenosis of the origin. Left common carotid artery: No stenosis. No dissection or occlusion. Left internal carotid artery: Mild atherosclerotic change at bifurcation. No stenosis of the extracranial segment. No dissection or occlusion. Left external carotid artery: No occlusion or stenosis of the origin. Right vertebral artery: Right vertebral artery is congenitally dominant. There is no evidence of spinal stenosis or neural foraminal narrowing. Left vertebral artery: Left vertebral artery is occluded at its origin. There is discontinuous opacification and reconstitution beginning inferiorly C5-C6 with distal V3 segment and proximal V4 segment of left vertebral artery not visualized and occluded. There is reconstitution of the distal V4 segment via retrograde flow. Aorta: Aortic arch is normal caliber without aneurysm or dissection. Three vessel aortic arch with widely patent great vessel origins. Soft tissues: Normal. No significant soft tissue swelling. Bones/joints: Mild degenerative changes C6-C7. Other findings: Bilateral subclavian arteries are patent. CT/CT angio headneck* [id number] IMPRESSION: Reconstitution of V4 segment of left vertebral artery via retrograde flow from contralateral side which reconstitutes widely patent PICA. IMPRESSION: 1. 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 2. No right vertebral artery stenosis or occlusion. 3. No carotid arteries stenoses. REFERENCES: NASCET CRITERIA. The degree of stenosis in the cervical segment of the internal carotid artery is based on NASCET criteria. Normal is no stenosis. Mild is less than 50% stenosis. Moderate is 50-69% stenosis. Severe is 70% to 99% stenosis. Total occlusion is no detectable patent lumen.
[2024-02-15 09:46] LABS: Blood Urea Nitrogen 21 mg/dL (8-23)
[2024-02-15] MEDS: iohexol 350 mg/mL 500 mL Btl (per mL) IV (09:59)
== END 2024-02-15 09:08 | disposition home or self-care (01) ==
LOC: RAD 09:11
PROVIDERS: PCP Nurse Practitioner Family; Visit Provider Psychiatry & Neurology Neurology
DX: G45.9 Transient cerebral ischemic attack, unspecified (principal); R25.1 Tremor, unspecified; I65.02 Occlusion and stenosis of left vertebral artery
CPT/HCPCS: 70496; 70498; 82565; 84520; Q9967

== ENCOUNTER → 2024-03-05 12:39 | Outpatient (BNVA) | payer MEDICARE, SELFPAY | PROVIDERS: PCP Nurse Practitioner Family; Visit Provider Psychiatry & Neurology Neurology | DX: Z09 Encounter for follow-up examination after completed treatment for conditions other than malignant neoplasm (principal); R25.1 Tremor, unspecified; I77.74 Dissection of vertebral artery; I65.02 Occlusion and stenosis of left vertebral artery; G30.9 Alzheimer's disease, unspecified; F02.80 Dementia in other diseases classified elsewhere, unspecified severity, without behavioral disturbance, psychotic disturbance, mood disturbance, and anxiety; R41.3 Other amnesia; Z86.73 Personal history of transient ischemic attack (TIA), and cerebral infarction without residual deficits | CPT/HCPCS: 36415; 81241; 83090; 85210; 85613; 85730; 86146; 86147; 99212 ==

== ENCOUNTER 2024-08-28 12:43 | Outpatient (CLI) | payer MEDICARE, SELFPAY ==
--- NOTE | 2024-08-28 12:30 | CT_ITS ---
WS: [id number] CTA HEAD AND NECK TECHNIQUE: Contrast enhanced CTA of the head and neck with coronal and sagittal reformatted images an d maximum intensity projection (MIP) images. NASCET criteria utilized. CLINICAL INFORMATION: G45.9 - Transient cerebral ischemic attack, unspecified COMPARISON: 02/15/2024 and 11/01/2023 DLP: 1182.[address] scans at [facility] use at least one of these dose optimization techniques: automated e xposure control; mA and/or kV adjustment per patient size (includes targeted exams where dose is matc hed to clinical indication); or iterative reconstruction. FINDINGS: No evidence intracranial hemorrhage or mass effect. Mild small vessel changes. Mild parench ymal volume loss. Chronic lacunar infarct RIGHT thalamus. Vascular calcification. Mastoid air cells a re well aerated. Small retention cyst RIGHT maxillary sinus. RIGHT sphenoid sinusitis. RIGHT: RIGHT common carotid artery is patent. No significant RIGHT ICA stenosis. RIGHT ICA is patent to the skull base. LEFT: LEFT common carotid artery is patent. No significant LEFT ICA stenosis. LEFT ICA is patent to t he skull base. RIGHT dominant vertebral artery. LEFT vertebral artery is occluded at the origin with discontinuous f low in the cervical segments. Intracranial reconstitution with a patent LEFT posterior inferior cereb ellar artery. Proximal basilar artery is patent. INTRACRANIAL CTA: Basilar artery is patent. Normal vascularity to the FLORIST territory bilaterally. Both ICAs are patent a t the skull base. Cavernous carotid calcification. Normal vascularity to the RUBY territory. Normal va scularity to the MCA territories bilaterally. No proximal flow-limiting stenosis. Normal branching aortic arch anatomy. Lung apices are well aerated. Proximal subclavian arteries are patent. CT/CT angio headneck* [id number] IMPRESSION: 1. No significant changes compared to previous 2. Left vertebral artery unchanged in appearance with occlusion at origin and discontinous flow in the cervical segment. Intracranial reconstitution via PICA 3. No carotid artery stenosis 4. No proximal flow-limiting intracranial stenosis.
[2024-08-28 12:58] LABS: Blood Urea Nitrogen 23 mg/dL (8-23)
[2024-08-28] MEDS: iohexol 350 mg/mL 500 mL Btl (per mL) IV (13:11)
== END 2024-08-28 12:44 | disposition home or self-care (01) ==
LOC: RAD 12:43
PROVIDERS: PCP Nurse Practitioner Family; Visit Provider Psychiatry & Neurology Neurology
DX: I63.81 Other cerebral infarction due to occlusion or stenosis of small artery (principal); I65.02 Occlusion and stenosis of left vertebral artery; J01.30 Acute sphenoidal sinusitis, unspecified; J34.1 Cyst and mucocele of nose and nasal sinus; I77.74 Dissection of vertebral artery; G30.9 Alzheimer's disease, unspecified; F02.80 Dementia in other diseases classified elsewhere, unspecified severity, without behavioral disturbance, psychotic disturbance, mood disturbance, and anxiety
CPT/HCPCS: 70496; 70498; 82565; 84520

== ENCOUNTER → 2024-09-03 12:36 | Outpatient (BNVA) | payer MEDICARE, SELFPAY | PROVIDERS: PCP Nurse Practitioner Family; Visit Provider Psychiatry & Neurology Neurology | DX: Z09 Encounter for follow-up examination after completed treatment for conditions other than malignant neoplasm; G45.9 Transient cerebral ischemic attack, unspecified; R25.1 Tremor, unspecified; I77.74 Dissection of vertebral artery; G30.9 Alzheimer's disease, unspecified; F02.80 Dementia in other diseases classified elsewhere, unspecified severity, without behavioral disturbance, psychotic disturbance, mood disturbance, and anxiety; R41.3 Other amnesia; Z79.01 Long term (current) use of anticoagulants | CPT/HCPCS: 99212; 99213 ==